=== PATIENT | female | born 1955 | race Caucasian/White ===

== ENCOUNTER 2017-08-31 20:07 | Emergency (ER) | payer BC ==
[2017-08-31 20:19] VITALS: BP 150/73
[2017-08-31] MEDS ORDERED: Fluorescein Sodium TOPICAL* 1 MG TEST OPHTHALMIC ONE (21:23)
[2017-08-31] MEDS ORDERED: Fluorescein Sodium TOPICAL* 1 MG TEST ONE (21:26)
[2017-08-31] MEDS ORDERED: Tetan/Diph/Pertus SYR(Tdap)* 0.5 ML SYR(BOOSTRIX) use SYR IM ONE (21:33)
[2017-08-31] MEDS ORDERED: Tobramycin/Dexameth OPTH.SUSP* 2.5 M L BTL LEFT EYE SCH (22:00)
[2017-08-31] MEDS ORDERED: Tobramycin 0.3% OPHTH.OINT* 3.5 GM TUBE (OPTH OINTMENT) ONE (22:05)
[2017-08-31] MEDS ORDERED: Tobramycin 0.3% OPHTH.SOL* 5 ML BOT (regular eye drops) ONE (22:07)
[2017-08-31] MEDS ORDERED: Tobramycin 0.3% OPHTH.SOL* 5 ML BOT (regular eye drops) LEFT EYE ONE (22:09)
--- NOTE | 2017-09-01 03:15 | ED ---
Roseline Jurado Rebecca, scribed for Hodan Hoskinsuel on 08/31/17 at 2123 . Complex/Multi-Sys Presentation - HPI Summary HPI Summary: Pt is a 62 y/o F who presents to ED c/o L eye pain s/p scratch by cat. At approximately 1930 tonight the pt was scratched by her cat on the L eye. Associated pain is currently mild, ranked 2/10 and described as "like I got dust in my eye." Treated with Refresh tears [employer]. Sx aggravated and alleviated by nothing. Denies eye discharge, vision loss and diplopia. Unsure of her last tetanus vaccination. - History Of Current Complaint Chief Complaint: EDEyeProblem Time Seen by Provider: 08/31/17 21:13 Hx Obtained From: Patient Onset/Duration: Lasting Hours, Still Present Severity Currently: Mild - 2/10 Location: Pain At: - L eye Aggravating Factor(s): Nothing Alleviating Factor(s): Nothing Associated Signs And Symptoms: Positive: Other - NEGATIVE: eye discharge, vision loss and diplopia - Allergies/Home Medications Allergies/Adverse Reactions: Allergies Allergy/AdvReac Type Severity Reaction Status Date / Time Epinephrine Allergy Palpitation Verified 08/31/17 20:21 s Levocetirizine [From Xyzal] Allergy Unknown Verified 08/31/17 20:21 Reaction Details PMH/Surg Hx/FS Hx/Imm Hx Cardiovascular History: Reports: Hx Hypertension Sensory History: Reports: Hx Contacts or Glasses Opthamlomology History: Reports: Hx Contacts or Glasses Infectious Disease History: No Infectious Disease History: Denies: Traveled Outside the [place] in Last 30 Days - Family History Known Family History: Negative: Diabetes - Social History Lives: With Family Alcohol Use: None Substance Use Type: Reports: None Smoking Status (MU): Never Smoked Tobacco Review of Systems Negative: Fever Positive: Other - Eye pain. Negative: Blurred Vision, Diplopia, Drainage All Other Systems Reviewed And Are Negative: Yes Physical Exam - Summary Physical Exam Summary: Appearance: Well appearing, no pain distress Skin: warm, dry, reflects adequate perfusion Head/face: normal Eyes: EOMI, DANII, hemorrhage in the L eye with blood in the medial aspect of the eye over the sclera, pupil is reactive to light, when viewed with fluorescein, reveals a corneal abrasion at the 6 o'clock position ENT: normal Neck: supple, nontender Respiratory: CTA, breath sounds present Cardiovascular: RRR, pulses symmetrical Abdomen: nontender, soft Bowel: present Musculoskeletal: normal, strength/ROM intact Neuro: normal, sensory motor intact, A&Ox3 Triage Information Reviewed: Yes Vital Signs On Initial Exam: Initial Vitals Temp Pulse Resp BP Pulse Ox 97.0 F 77 16 150/73 99 08/31/17 20:15 08/31/17 20:15 08/31/17 20:15 08/31/17 20:15 08/31/17 20:15 Vital Signs Reviewed: Yes Diagnostics - Vital Signs Vital Signs Temp Pulse Resp BP Pulse Ox 08/31/17 20:15 97.0 F 77 16 150/73 99 - Laboratory Lab Statement: Any lab studies that have been ordered have been reviewed, and results considered in the medical decision making process. Complex Multi-Symp Course/Dx Assessment/Plan: Pt is a 62 y/o F who presents to ED c/o mild L eye pain s/p scratch by cat at approximately 1930 tonight. Treated with Refresh tears [employer]. Denies eye discharge, vision loss and diplopia. Unsure of her last tetanus vaccination. When viewed with fluorescein, reveals a corneal abrasion. Receives Boostrix in the ED course. Pt will be D/C to home with Dx of corneal abrasoin and subconjunctival hemorrhage with a follow up with her opthalmologist Dr. Zambrano with Tobramycin drops. She understands and agrees. Allergies noted. Elevated BP noted. - Diagnoses Differential Diagnoses/HQI/PQRI: Other - corneal abrasion/sub conjunctival hemmorraghe Provider Diagnoses: Corneal abrasion, Subconjunctival hemorrhage Discharge - Discharge Plan Condition: Stable Disposition: HOME Patient Education Materials: Corneal Abrasion (ED), Subconjunctival Hemorrhage (ED) Referrals: Nani Hernandez MD [Primary Care Provider] - Jamie Zambrano MD [Medical Doctor] - 3 Days The documentation as recorded by the Roseline drake Rebecca accurately reflects the service I personally performed and the decisions made by , Froilan Hoskins.
== END 2017-08-31 22:25 | disposition home or self-care (01) ==
LOC: ED 20:07
DX: H57.12 Ocular pain, left eye (principal); S05.00XA Injury of conjunctiva and corneal abrasion without foreign body, unspecified eye, initial encounter; W55.03XA Scratched by cat, initial encounter; Y93.9 Activity, unspecified; Y92.9 Unspecified place or not applicable; H11.30 Conjunctival hemorrhage, unspecified eye
CPT/HCPCS: 90715; 96372; 99281; A9270-GY